=== PATIENT | female | born 1940 | race Caucasian/White ===

== ENCOUNTER 2017-07-09 12:51 | Inpatient (IN) | payer OTHER, BC ==
[~2017-07-09] VITALS: Ht 170.2 cm; Wt 70.3 kg
== END 2017-07-13 20:06 | disposition designated cancer center or children's hospital (05) | DRG 871 ==
LOC: ER 12:51 → ICU-2 18:37 → SEC-K 07-11 11:18 → MEDI 07-11 11:28 → SURH 07-11 11:28
PROC: 4A033R1 Measurement of Arterial Saturation, Peripheral, Percutaneous Approach (ICD-10-PCS; principal; 2017-07-09)
PROC: B020ZZZ Computerized Tomography (CT Scan) of Brain (ICD-10-PCS; 2017-07-09)
PROC: BW24ZZZ Computerized Tomography (CT Scan) of Chest and Abdomen (ICD-10-PCS; 2017-07-09)
PROC: B246ZZZ Ultrasonography of Right and Left Heart (ICD-10-PCS; 2017-07-09)
PROC: BW40ZZZ Ultrasonography of Abdomen (ICD-10-PCS; 2017-07-09)
PROC: B44HZZZ Ultrasonography of Bilateral Lower Extremity Arteries (ICD-10-PCS; 2017-07-10)
PROC: 4A12X4Z Monitoring of Cardiac Electrical Activity, External Approach (ICD-10-PCS; 2017-07-11)
PROC: 3E0F7GC Introduction of Other Therapeutic Substance into Respiratory Tract, Via Natural or Artificial Opening (ICD-10-PCS; 2017-07-12)
PROC: B030ZZZ Magnetic Resonance Imaging (MRI) of Brain (ICD-10-PCS; 2017-07-12)
PROC: B246ZZZ Ultrasonography of Right and Left Heart (ICD-10-PCS; 2017-07-12)
DX: A41.9 Sepsis, unspecified organism (principal); R65.21 Severe sepsis with septic shock; I63.443 Cerebral infarction due to embolism of bilateral cerebellar arteries; K81.0 Acute cholecystitis; N39.0 Urinary tract infection, site not specified; I31.3 Pericardial effusion (noninflammatory); N17.8 Other acute kidney failure; G81.94 Hemiplegia, unspecified affecting left nondominant side; T40.2X1A Poisoning by other opioids, accidental (unintentional), initial encounter; I95.2 Hypotension due to drugs; Y92.89 Other specified places as the place of occurrence of the external cause; I48.0 Paroxysmal atrial fibrillation; I10 Essential (primary) hypertension; I35.2 Nonrheumatic aortic (valve) stenosis with insufficiency; B96.20 Unspecified Escherichia coli [E. coli] as the cause of diseases classified elsewhere; D69.59 Other secondary thrombocytopenia; D64.89 Other specified anemias; Z78.1 Physical restraint status
CPT/HCPCS: 70551